=== PATIENT | female | born 1960 ===

== ENCOUNTER 2020-08-16 14:55 | Inpatient (IN) | payer BC ==
[~2020-08-16] VITALS: Ht 167.6 cm; Wt 75.7 kg
[2020-08-16 15:17] VITALS: BP 98/67
[2020-08-16] MEDS ORDERED: Z GUARD REMEDY PASTE 57 GM TUBE TOP PRN ×2 (15:45)
[2020-08-16] MEDS ORDERED: ACETAMINOPHEN 325 MG TABLET PO PRN (15:45)
[2020-08-16] MEDS ORDERED: HYDROCODONE/APAP 5-325MG TABLET PO PRN (15:45)
[2020-08-16] MEDS ORDERED: ONDANSETRON 4 MG/2 ML VIAL IV PRN (15:45)
[2020-08-16] MEDS ORDERED: ZOLPIDEM 5 MG TABLET PO PRN (15:45)
[2020-08-16] MEDS ORDERED: MAGNESIUM HYDROXIDE 30 ML LIQUID UDC PO PRN (15:45)
[2020-08-16] MEDS ORDERED: LISI10TA29 PO (16:46)
[2020-08-16] MEDS ORDERED: CLOP75TA33 PO (16:46)
[2020-08-16] MEDS ORDERED: ACET-2154 PO (16:46)
[2020-08-16] MEDS ORDERED: ATOR80TA PO (16:46)
[2020-08-16] MEDS ORDERED: ASPI-869 PO (16:46)
[2020-08-16] MEDS ORDERED: ZINC1CAP2 PO (16:46)
--- NOTE | 2020-08-16 18:00 | NUR ---
Admitted this 59 y/o female from [facility] [place] with diagnosis of Acute CVA. Patient is alert, oriented x 4, not in any form of distress, on room air. She denies any pain or discomfort. Oriented patient to room, staff and use of devises. Assisted with her needs promptly. Admission photos taken. Call light and frequently used items placed within patient's reach. Informed Dr. Chung regarding admission and MD saw patient. Dr. Aparicio made aware of admission and need to reconcile medications and MD said she will do. Will endorse accordingly.
[2020-08-16 20:12] VITALS: BP 103/73
[2020-08-16] MEDS ORDERED: DOCUSATE SODIUM 100 MG CAPSULE PO SCH (21:00)
--- NOTE | 2020-08-16 21:52 | NUR ---
Received report from outgoing nurse, DELMI Richardson.
[2020-08-17] MEDS: ACETAMINOPHEN 325 MG TABLET PO SCH ×5 (01:31→23:15)
[2020-08-17 04:18] VITALS: BP 107/71
--- NOTE | 2020-08-17 06:14 | NUR ---
Shift End Report: Vs stable. Slept well. All needs attended and met. No significant event reported all night. Continue current rehab plan of care.
[2020-08-17] MEDS ORDERED: PANTOPRAZOLE SODIUM 40 MG TABLET.DR PO SCH (07:00)
[2020-08-17] MEDS: CLOPIDOGREL 75 MG TABLET PO SCH (08:39)
[2020-08-17] MEDS: ZINC SULFATE 220 MG CAPSULE PO SCH (08:39)
[2020-08-17] MEDS: ASPIRIN EC 325 MG TABLET.DR PO SCH (08:50)
[2020-08-17 08:51] VITALS: BP 115/65
[2020-08-17] MEDS: LISINOPRIL 10 MG TABLET PO SCH (08:51)
--- NOTE | 2020-08-17 14:20 | NUR ---
Stroke Screening (PHQ-9): wafer polishing worker conducting post stroke depression screening. Patient scored 2 (0-4:None-Minimal). Patient does not require a psychiatry consult.
--- NOTE | 2020-08-17 14:22 | NUR ---
Social Work Stroke Resources: Meatman met with patient informed about the importance of stroke. make ready worker provided stroke referrals such as: Stroke Family Warmline at (0-306-3-STROKE) and Caring for a stroke survivor ( ). make ready worker also educated patient on the signs of Stroke and to immediately call 911. Meatman provided patient with a stroke educational packet with information such as; Dietary food, what stroke is, risks, emotional support, finding support, medical management, and effects of stroke.
[2020-08-17 16:00] VITALS: BP 116/77
--- NOTE | 2020-08-17 17:57 | NUR ---
no changes noted during shift, patient sitting in chair, alert, oriented x4, able to tolerate the meals and medications, no acute distress noted
[2020-08-17 20:22] VITALS: BP 113/72
[2020-08-17] MEDS: ATORVASTATIN 40 MG TABLET PO SCH (20:41)
--- NOTE | 2020-08-18 03:45 | NUR ---
AAOx4 no acute distress noted. ambulates to the BR with cane. Voiding well. Denies any pain nor any discomfort. Attended to needs. Will monitor patient. Kept comfortable. VSS.
[2020-08-18 04:46] VITALS: BP 106/55
[2020-08-18] MEDS: ACETAMINOPHEN 325 MG TABLET PO SCH ×4 (06:11→23:05)
[2020-08-18] MEDS: ASPIRIN EC 325 MG TABLET.DR PO SCH (08:17)
[2020-08-18] MEDS: ZINC SULFATE 220 MG CAPSULE PO SCH (08:17)
[2020-08-18] MEDS: CLOPIDOGREL 75 MG TABLET PO SCH (08:17)
[2020-08-18] MEDS: LISINOPRIL 10 MG TABLET PO SCH (08:18)
[2020-08-18 08:41] VITALS: BP 100/68
[2020-08-18 15:15] VITALS: BP 108/69
[2020-08-18] MEDS: ATORVASTATIN 40 MG TABLET PO SCH (20:28)
--- NOTE | 2020-08-18 22:30 | NUR ---
received pt lying in bed watching TV. No acute distress noted, No SOB noted, on room air. VSS. AAOx4. Denies any pain or discomfort at the moment. All due medication administered, tolerated well. Offered snacks. Attended to needs. Safety measures maintained. Bilateral lower heels offloaded with pillow. Kept comfortable. Call light and all personal items with reach. Will continue to monitor through the night.
[2020-08-19] MEDS: ACETAMINOPHEN 325 MG TABLET PO SCH ×3 (05:17→17:11)
[2020-08-19 08:00] VITALS: BP 115/73
[2020-08-19] MEDS: CLOPIDOGREL 75 MG TABLET PO SCH (08:10)
[2020-08-19] MEDS: ZINC SULFATE 220 MG CAPSULE PO SCH (08:10)
[2020-08-19] MEDS: ASPIRIN EC 325 MG TABLET.DR PO SCH (08:10)
[2020-08-19] MEDS: LISINOPRIL 10 MG TABLET PO SCH (08:10)
[2020-08-19 15:37] VITALS: BP 124/59
[2020-08-19] MEDS: ATORVASTATIN 40 MG TABLET PO SCH (20:25)
[2020-08-19 20:38] VITALS: BP 108/81
[2020-08-20 04:51] VITALS: BP 103/69
[2020-08-20] MEDS: PANTOPRAZOLE SODIUM 40 MG TABLET.DR PO SCH (05:49)
--- NOTE | 2020-08-20 06:48 | NUR ---
no changes noted during shift, patient BRP, skin intact. All due medications administered, tolerated well. NO acute distress, no SOB noted. Needs attended too promptly. Snacks proved. Safety measures maintained. Will continue plan of care.
[2020-08-20 06:59] LABS: EOSINOPHILS # (AUTO) 0.2 K/uL (0.0-0.7); HEMATOCRIT 37.2 % (31.2-41.9); HEMOGLOBIN 12.4 g/dL (10.9-14.3); LYMPHOCYTES # (AUTO) 2.4 K/uL (20.0-40.0); LYMPHOCYTES % (AUTO) 51.1 % (20.5-51.5); MEAN CORPUSCULAR HEMOGLOBIN 29.2 uug (24.7-32.8); MEAN CORPUSCULAR HGB CONC 33 g/dL (32.3-35.6); MEAN CORPUSCULAR VOLUME 87.3 fL (75.5-95.3); MONOCYTES # (AUTO) 0.5 K/uL (2.0-10.0); MONOCYTES % (AUTO) 9.8 % (0.0-11.0); NEUTROPHILS # (AUTO) 1.6 K/uL (1.8-8.9); NEUTROPHILS % (AUTO) 34.1 % (38.5-71.5); PLATELET COUNT (AUTO) 274 K/uL (179-408); RED BLOOD CELL COUNT(AUTO) 4.26 MIL/uL (3.63-4.92); WHITE BLOOD COUNT (AUTO) 4.7 K/uL (3.8-11.8)
[2020-08-20 07:26] LABS: THYROID STIMULATING HORMONE 1.068 mIU/mL (0.358-3.740)
[2020-08-20 07:36] LABS: BILIRUBIN,TOTAL 0.6 mg/dL (0.2-1.0); CREATININE 0.9 mg/dL (0.6-1.3); PHOSPHOROUS 3.9 mg/dL (2.5-4.9); POTASSIUM 3.9 mmol/L (3.5-5.1); TOTAL PROTEIN, SERUM 6.9 g/dL (6.4-8.2)
[2020-08-20] MEDS: CLOPIDOGREL 75 MG TABLET PO SCH (08:08)
[2020-08-20] MEDS: ACETAMINOPHEN 325 MG TABLET PO PRN ×2 (08:08→20:57)
[2020-08-20] MEDS: LISINOPRIL 10 MG TABLET PO SCH (08:08)
[2020-08-20] MEDS: ZINC SULFATE 220 MG CAPSULE PO SCH (08:08)
[2020-08-20] MEDS: ASPIRIN EC 325 MG TABLET.DR PO SCH (08:08)
[2020-08-20 08:20] VITALS: BP 118/78
[2020-08-20 17:03] VITALS: BP 104/70
[2020-08-20 20:00] VITALS: BP 111/84
--- NOTE | 2020-08-20 20:00 | NUR ---
RECEIVED PATIENT AWAKE SITTING IN W/C AT BEDSIDE. A/OX4. VERY PLEASANT WHEN APPROACHED. DENIES PAIN OR DISCOMFORT AT THIS TIME. NO RESP.DISTRESS NOTED. VS WNL. CALL LIGHT IN REACH. ALL NEEDS ATTENDED. WILL CONTINUE TO MONITOR AND ASSESS.
[2020-08-20] MEDS: ATORVASTATIN 40 MG TABLET PO SCH (20:25)
[2020-08-21 04:00] VITALS: BP 129/82
[2020-08-21] MEDS: PANTOPRAZOLE SODIUM 40 MG TABLET.DR PO SCH (06:06)
[2020-08-21] MEDS: ASPIRIN EC 325 MG TABLET.DR PO SCH (08:00)
[2020-08-21] MEDS: LISINOPRIL 10 MG TABLET PO SCH (08:00)
[2020-08-21] MEDS: ZINC SULFATE 220 MG CAPSULE PO SCH (08:00)
[2020-08-21] MEDS: CLOPIDOGREL 75 MG TABLET PO SCH (08:00)
[2020-08-21 08:14] VITALS: BP 118/70
[2020-08-21 15:14] VITALS: BP 106/58
[2020-08-21 20:19] VITALS: BP 131/86
[2020-08-21] MEDS: ATORVASTATIN 40 MG TABLET PO SCH (20:51)
[2020-08-21] MEDS: ACETAMINOPHEN 325 MG TABLET PO PRN (21:21)
[2020-08-21] MEDS: MAGNESIUM HYDROXIDE 30 ML LIQUID UDC PO PRN (21:21)
[2020-08-22 04:00] VITALS: BP 110/76
[2020-08-22] MEDS: PANTOPRAZOLE SODIUM 40 MG TABLET.DR PO SCH (06:10)
--- NOTE | 2020-08-22 07:30 | NUR ---
Received pt in bed, awake. A&Ox4, able to verbalized needs. No s/s of acute distress, no SOB. Pt denies pain/discomfort at this time. Belongings and call light within reach, reinforced usage, pt verbalized understanding. Bed low and in locked position, safety measures, aspiration precautions, fall precautions in place. Will continue to monitor.
[2020-08-22 08:00] VITALS: BP 126/86
--- NOTE | 2020-08-22 09:30 | NUR ---
Pt off unit with PT, 0900 medications delayed. Will administer per order upon pt return.
[2020-08-22] MEDS: ASPIRIN EC 81 MG TABLET.DR PO SCH (11:10)
[2020-08-22] MEDS: ZINC SULFATE 220 MG CAPSULE PO SCH (11:10)
[2020-08-22] MEDS: CLOPIDOGREL 75 MG TABLET PO SCH (11:10)
[2020-08-22] MEDS: LISINOPRIL 10 MG TABLET PO SCH (11:11)
[2020-08-22 16:00] VITALS: BP 104/71
--- NOTE | 2020-08-22 19:02 | NUR ---
EOSS: Pt in chair on computer, alert and awake. No s/s of acute distress. No acute changes during shift. Able to make needs known during shift, all needs attended to promptly. Pt ambulated with FWW with PT, tolerated well. All due medications and care given per order. No a/r noted. Belongings and call light within reach. Will endorse care to caustic cresylate shift superintendent.
[2020-08-22 20:00] VITALS: BP 131/75
[2020-08-22] MEDS: ATORVASTATIN 40 MG TABLET PO SCH (20:26)
[2020-08-23 04:00] VITALS: BP 129/85
--- NOTE | 2020-08-23 04:20 | NUR ---
Received pt at the beginning of shift sitting in wheelchair and eating. AAO x4. No acute distress noted. Pt slept mostly throughout the shift. Denies pain/ discomfort. Due med given as ordered. All needs attended to promptly. Safety measures maintained. Call light and personal items within reach. Will continue to monitor.
[2020-08-23] MEDS: PANTOPRAZOLE SODIUM 40 MG TABLET.DR PO SCH (06:21)
--- NOTE | 2020-08-23 07:55 | NUR ---
Received PT in bed, awake AO X 4. Patient is cooperative and pleasant. Makes needs known to staff. PT stated they had a good night sleep. No acute distress or SOB noted. All pertinent information given during report. No complain noted at this time. Safety measures provided, call light within reach, bed low and lock. Will continue to monitor.
[2020-08-23 08:00] VITALS: BP 118/80
[2020-08-23] MEDS: CLOPIDOGREL 75 MG TABLET PO SCH (08:40)
[2020-08-23] MEDS: ASPIRIN EC 81 MG TABLET.DR PO SCH (08:41)
[2020-08-23] MEDS: ZINC SULFATE 220 MG CAPSULE PO SCH (08:41)
[2020-08-23] MEDS: LISINOPRIL 10 MG TABLET PO SCH (08:41)
[2020-08-23 16:00] VITALS: BP 140/84
[2020-08-23] MEDS: DOCUSATE SODIUM 100 MG CAPSULE PO SCH ×2 (16:42→19:54)
--- NOTE | 2020-08-23 18:45 | NUR ---
Received PT in bed, awake AO X 4. Patient is cooperative and pleasant. Makes needs known to staff. PT attended physical therapy. Tolerated activities well. No acute distress or SOB noted. All pertinent information given during report. No complain noted at this time. Safety measures provided, call light within reach, bed low and lock. Will endorse to power and recovery shift engineer nurse.
[2020-08-23] MEDS: ATORVASTATIN 40 MG TABLET PO SCH (19:54)
--- NOTE | 2020-08-23 20:24 | NUR ---
pt eating dinner at bedside. No acute distress noted. A&Ox4, makes needs known. No s/s SOB, noted, denies pain/discomfort at this time. All due medication administered. Safety measures in place. Call light and personal belongings within reach. Will continue to monitor.
[2020-08-23 20:25] VITALS: BP 126/78
[2020-08-24 04:55] VITALS: BP 126/65
[2020-08-24] MEDS: PANTOPRAZOLE SODIUM 40 MG TABLET.DR PO SCH (06:08)
[2020-08-24 07:30] VITALS: BP 147/91
[2020-08-24] MEDS: LISINOPRIL 10 MG TABLET PO SCH (08:13)
[2020-08-24] MEDS: CLOPIDOGREL 75 MG TABLET PO SCH (08:13)
[2020-08-24] MEDS: ASPIRIN EC 81 MG TABLET.DR PO SCH (08:13)
[2020-08-24] MEDS: ZINC SULFATE 220 MG CAPSULE PO SCH (08:13)
[2020-08-24] MEDS: DOCUSATE SODIUM 100 MG CAPSULE PO SCH ×2 (08:13→20:33)
[2020-08-24] MEDS: ACETAMINOPHEN 325 MG TABLET PO PRN (08:16)
[2020-08-24 15:10] VITALS: BP 102/59
--- NOTE | 2020-08-24 19:30 | NUR ---
Pt received sitting in chair at bedside. Denies pain or SOB. No distress noted. Equal strength on bilateral arms and legs, only minor facial weakness noted. Pt is AOx4. Denies any numbness or weakness in extremities. On RA sating at 100%. Call light is within reach. No other issues or concerns at this time.
[2020-08-24 20:06] VITALS: BP 136/84
[2020-08-24] MEDS: ATORVASTATIN 40 MG TABLET PO SCH (20:33)
[2020-08-25 04:55] VITALS: BP 135/69
[2020-08-25] MEDS: PANTOPRAZOLE SODIUM 40 MG TABLET.DR PO SCH (06:46)
[2020-08-25 08:00] VITALS: BP 127/88
[2020-08-25] MEDS: LISINOPRIL 10 MG TABLET PO SCH (08:32)
[2020-08-25] MEDS: ZINC SULFATE 220 MG CAPSULE PO SCH (08:32)
[2020-08-25] MEDS: DOCUSATE SODIUM 100 MG CAPSULE PO SCH ×2 (08:32→20:30)
[2020-08-25] MEDS: CLOPIDOGREL 75 MG TABLET PO SCH (08:32)
[2020-08-25] MEDS: ASPIRIN EC 81 MG TABLET.DR PO SCH (08:32)
[2020-08-25 16:00] VITALS: BP 135/89
[2020-08-25 20:00] VITALS: BP 144/82
[2020-08-25] MEDS: ACETAMINOPHEN 325 MG TABLET PO PRN (20:30)
[2020-08-25] MEDS: ATORVASTATIN 40 MG TABLET PO SCH (20:30)
--- NOTE | 2020-08-26 00:43 | NUR ---
AAOx4 OOB to the BR. Voiding well. Admitted for acute CVA. Left facial weakness noted/ slight facial droop noted. Needs attended. VSS. Compliant with meds. Tylenol 650 mg po given for headache. Voiding okay.
[2020-08-26 04:00] VITALS: BP 133/79
[2020-08-26] MEDS: PANTOPRAZOLE SODIUM 40 MG TABLET.DR PO SCH (06:31)
--- NOTE | 2020-08-26 06:53 | NUR ---
End of shift notes: Quiet night. No acute distress noted. VSS. Slept well most of the shift. Kept comfortable. No complaints presented during the shift.
--- NOTE | 2020-08-26 07:36 | NUR ---
Received PT in bed, awake AO X 4. Patient is cooperative and pleasant. Makes needs known to staff. PT stated they had a good night sleep. No acute distress or SOB noted. All pertinent information given during report. No complain noted at this time. Continue plan of care. Safety measures provided, call light within reach, bed low and lock. Will continue to monitor.
[2020-08-26] MEDS: ASPIRIN EC 81 MG TABLET.DR PO SCH (08:24)
[2020-08-26] MEDS: DOCUSATE SODIUM 100 MG CAPSULE PO SCH ×2 (08:24→20:51)
[2020-08-26] MEDS: ZINC SULFATE 220 MG CAPSULE PO SCH (08:24)
[2020-08-26] MEDS: CLOPIDOGREL 75 MG TABLET PO SCH (08:24)
[2020-08-26] MEDS: LISINOPRIL 10 MG TABLET PO SCH (08:30)
[2020-08-26] MEDS: ACETAMINOPHEN 325 MG TABLET PO PRN ×2 (08:30→20:50)
[2020-08-26 08:31] VITALS: BP 137/91
[2020-08-26 16:00] VITALS: BP 140/81
--- NOTE | 2020-08-26 18:17 | NUR ---
PT in bed, awake AO X 4. Patient is cooperative and pleasant. Makes needs known to staff. No acute distress or SOB noted. PT participated in all assigned therapy activities and tolerated it well. Administered pain medication prior to physical therapy. No further complain of pain noted at this time. Continue plan of care. Safety measures provided, call light within reach, bed low and lock. Will endorse to information specialist nurse
[2020-08-26 20:15] VITALS: BP 136/96
[2020-08-26] MEDS: ATORVASTATIN 40 MG TABLET PO SCH (20:51)
--- NOTE | 2020-08-26 22:05 | NUR ---
OOB in chair @ beginning of shift. AAOx4 Ambulates to the BR. Voiding well. complained of headache, Tylenol given. All due meds given. Will monitor patient. Needs attended. VSS.
[2020-08-27 04:15] VITALS: BP 127/73
[2020-08-27] MEDS: PANTOPRAZOLE SODIUM 40 MG TABLET.DR PO SCH (06:17)
--- NOTE | 2020-08-27 07:33 | NUR ---
Received PT in bed, awake AO X 4. Patient is cooperative and pleasant. Makes needs known to staff. PT wants to follow up with Covid vaccine with Administration. Nurse will follow up. No acute distress or SOB noted. All pertinent information given during report. No complain noted at this time. Continue plan of care. Safety measures provided, call light within reach, bed low and lock. Will continue to monitor.
[2020-08-27] MEDS: ZINC SULFATE 220 MG CAPSULE PO SCH (08:25)
[2020-08-27] MEDS: LISINOPRIL 10 MG TABLET PO SCH (08:26)
[2020-08-27] MEDS: DOCUSATE SODIUM 100 MG CAPSULE PO SCH ×2 (08:26→20:10)
[2020-08-27] MEDS: ASPIRIN EC 81 MG TABLET.DR PO SCH (08:26)
[2020-08-27] MEDS: CLOPIDOGREL 75 MG TABLET PO SCH (08:26)
[2020-08-27] MEDS: ACETAMINOPHEN 325 MG TABLET PO PRN ×2 (12:11→20:10)
[2020-08-27 12:52] VITALS: BP 134/82
--- NOTE | 2020-08-27 16:00 | NUR ---
PT requested to independently bathe in shower room. PT has steady gait, but nurse near by for assistance if needed. PT able to bathe alone. No acute distress or SOB. Will endorse to occupational therapy.
[2020-08-27 16:11] VITALS: BP 157/99
--- NOTE | 2020-08-27 18:18 | NUR ---
PT in bed, awake AO X 4. Patient is cooperative and pleasant. Makes needs known to staff. PT received COVID vaccine #2 through [employer]. Provided vaccination card for personal file. No acute distress or SOB noted. No complain noted at this time. Continue plan of care. Safety measures provided, call light within reach, bed low and lock. Will endorse to slot shift supervisor nurse
[2020-08-27] MEDS: ATORVASTATIN 40 MG TABLET PO SCH (20:10)
[2020-08-27] MEDS: MAGNESIUM HYDROXIDE 30 ML LIQUID UDC PO PRN (20:11)
[2020-08-27 20:33] VITALS: BP 153/81
[2020-08-28 05:42] VITALS: BP 143/67
[2020-08-28] MEDS: PANTOPRAZOLE SODIUM 40 MG TABLET.DR PO SCH (06:38)
[2020-08-28 07:59] VITALS: BP 138/79
[2020-08-28] MEDS: ZINC SULFATE 220 MG CAPSULE PO SCH (08:36)
[2020-08-28] MEDS: DOCUSATE SODIUM 100 MG CAPSULE PO SCH ×2 (08:36→20:27)
[2020-08-28] MEDS: CLOPIDOGREL 75 MG TABLET PO SCH (08:37)
[2020-08-28] MEDS: ASPIRIN EC 81 MG TABLET.DR PO SCH (08:44)
[2020-08-28] MEDS: LISINOPRIL 10 MG TABLET PO SCH (08:47)
[2020-08-28] MEDS: ACETAMINOPHEN 325 MG TABLET PO PRN ×2 (08:56→20:27)
[2020-08-28 16:56] VITALS: BP 142/94
--- NOTE | 2020-08-28 18:24 | NUR ---
patient AOx4 able to make needs known. Patient is cooperative and pleasant, received PT, no SOB or distress noted. No complain noted at this time. Continue plan of care. Safety measures provided, call light within reach, bed low and lock. Will continue to monitor.
[2020-08-28] MEDS: ATORVASTATIN 40 MG TABLET PO SCH (20:27)
[2020-08-28 21:24] VITALS: BP 144/95
[2020-08-28] MEDS ORDERED: HYDROCORTISONE 0.5% CREAM 28.35 GM TUBE TOP PRN (21:45)
[2020-08-28] MEDS: diphenhydrAMINE 25 MG CAP PO PRN (22:26)
--- NOTE | 2020-08-28 22:28 | NUR ---
No acute distress noted. A&Ox4, makes needs known. No s/s SOB, noted, denies pain/discomfort at this time. All due medication administered. per pt request Administered Tylenol PRN. pt c/o itching and redness @injection site of her COVID19 vaccination, notified and got new order for Benadryl and hydrocortisone cream PRN. Safety measures in place. Call light and personal belongings within reach. Will continue to monitor.
[2020-08-29 05:29] VITALS: BP 139/80
[2020-08-29] MEDS: PANTOPRAZOLE SODIUM 40 MG TABLET.DR PO SCH (05:58)
[2020-08-29] MEDS ORDERED: HYDROCORTISONE 0.5% CREAM 28.35 GM TUBE TOP PRN (06:15)
--- NOTE | 2020-08-29 07:30 | NUR ---
Patient received sitting on the side of the bed. Awake, alert and oriented times 4.. Patient has slight droop on the right side of the face. Patient is on room air. No sign of distress noted. Patient complain of pain, requesting Tylenol. Safety precautions are in place. will continue to monitor.
[2020-08-29 08:00] VITALS: BP 145/92
[2020-08-29] MEDS: ZINC SULFATE 220 MG CAPSULE PO SCH (08:52)
[2020-08-29] MEDS: DOCUSATE SODIUM 100 MG CAPSULE PO SCH ×2 (08:52→21:38)
[2020-08-29] MEDS: ASPIRIN EC 81 MG TABLET.DR PO SCH (08:52)
[2020-08-29] MEDS: CLOPIDOGREL 75 MG TABLET PO SCH (08:52)
[2020-08-29] MEDS: LISINOPRIL 10 MG TABLET PO SCH (08:55)
[2020-08-29] MEDS: ACETAMINOPHEN 325 MG TABLET PO PRN ×2 (09:05→21:45)
[2020-08-29 15:54] VITALS: BP 128/76
--- NOTE | 2020-08-29 19:11 | NUR ---
Patient is resting comfortably in bed now. Patient is on room air. No sign of distress noted. All medications given as ordered. Will endorse to the oncoming nurse.
[2020-08-29 20:09] VITALS: BP 128/71
[2020-08-29] MEDS: ATORVASTATIN 40 MG TABLET PO SCH (21:39)
[2020-08-29] MEDS: diphenhydrAMINE 25 MG CAP PO PRN (21:45)
[2020-08-30 04:36] VITALS: BP 134/83
[2020-08-30] MEDS: PANTOPRAZOLE SODIUM 40 MG TABLET.DR PO SCH (06:12)
--- NOTE | 2020-08-30 06:49 | NUR ---
End of Shift: Patient is AOx4, no acute distress noted, VS WNL. Admin medications as ordered. Patient slept through the night. Aspiration and fall precautions in place, bed is low & locked, side rails are up x2, call light within reach. Will endorse to the AM shift nurse.
--- NOTE | 2020-08-30 07:30 | NUR ---
Received pt in chair, awake. A&Ox4, able to verbalize needs. No s/s of acute distress, no SOB. Pt denies pain/discomfort at this time. Belongings and call light within reach. Safety measures, aspiration precautions, fall precautions in place. Will continue to monitor.
[2020-08-30 08:07] VITALS: BP 137/89
[2020-08-30] MEDS: ZINC SULFATE 220 MG CAPSULE PO SCH (09:21)
[2020-08-30] MEDS: DOCUSATE SODIUM 100 MG CAPSULE PO SCH ×2 (09:21→20:39)
[2020-08-30] MEDS: ASPIRIN EC 81 MG TABLET.DR PO SCH (09:21)
[2020-08-30] MEDS: CLOPIDOGREL 75 MG TABLET PO SCH (09:21)
[2020-08-30] MEDS: LISINOPRIL 10 MG TABLET PO SCH (09:22)
[2020-08-30] MEDS: ACETAMINOPHEN 325 MG TABLET PO PRN ×2 (09:41→20:41)
[2020-08-30 15:12] VITALS: BP 136/89
--- NOTE | 2020-08-30 19:06 | NUR ---
EOSS: Pt in bed, awake, no s/s of acute distress. Able to make needs known during shift, all needs attended to promptly. Pt ambulated with PT, tolerated well. All due medications and care given per order. Safety measures maintained. Belongings and call light within reach. Will endorse care to plant operator/shift supervisor.
--- NOTE | 2020-08-30 20:00 | NUR ---
Received pt in bed, awake, A&Ox4, able to make needs known. No s/s of respiratory distress, no pain or discomfort reported. Safety measures initiated, will continue to monitor.
[2020-08-30 20:36] VITALS: BP 136/87
[2020-08-30] MEDS: ATORVASTATIN 40 MG TABLET PO SCH (20:39)
[2020-08-30] MEDS: diphenhydrAMINE 25 MG CAP PO PRN (22:10)
[2020-08-31] MEDS: PANTOPRAZOLE SODIUM 40 MG TABLET.DR PO SCH (06:09)
--- NOTE | 2020-08-31 06:25 | NUR ---
Pt slept through the night, no s/s of acute distress, no pain or discomfort reported, due medications given and tolerated well, safety and comfort provided. all needs attended.
--- NOTE | 2020-08-31 07:30 | NUR ---
Received pt awake, alert, able to verbalize needs. No s/s of acute distress, no complaints at this time. Belongings and call light within reach. Safety measures, aspiration precautions, fall precautions in place. Will continue to monitor.
[2020-08-31 08:03] VITALS: BP 145/93
[2020-08-31] MEDS: ZINC SULFATE 220 MG CAPSULE PO SCH (09:47)
[2020-08-31] MEDS: ASPIRIN EC 81 MG TABLET.DR PO SCH (09:47)
[2020-08-31] MEDS: CLOPIDOGREL 75 MG TABLET PO SCH (09:47)
[2020-08-31] MEDS: DOCUSATE SODIUM 100 MG CAPSULE PO SCH ×2 (09:47→21:18)
[2020-08-31] MEDS: LISINOPRIL 10 MG TABLET PO SCH (09:48)
[2020-08-31] MEDS: ACETAMINOPHEN 325 MG TABLET PO PRN ×2 (09:48→21:18)
[2020-08-31 14:34] VITALS: BP 127/65
--- NOTE | 2020-08-31 19:31 | NUR ---
EOSS: Pt awake, alert, no acute distress, no complaints. All due medications given per order. Safety measures and aspiration precautions maintained. Belongings and call light within reach. Will endorse care to night patrol inspector.
[2020-08-31 20:00] VITALS: BP 130/78
[2020-08-31] MEDS: ATORVASTATIN 40 MG TABLET PO SCH (21:18)
--- NOTE | 2020-08-31 22:00 | NUR ---
Received pt awake, alert, able to verbalize needs. No s/s of acute distress, no complaints at this time. All due mediations administered. Administered Tylenol PRN, per pt request. TRANSFER ENGINEER assisted with bedtime shower. All needs attended too. Belongings and call light within reach. Safety measures, aspiration precautions, fall precautions in place. Will continue to monitor.
[2020-09-01 04:00] VITALS: BP 120/70
[2020-09-01] MEDS: PANTOPRAZOLE SODIUM 40 MG TABLET.DR PO SCH (06:11)
--- NOTE | 2020-09-01 07:45 | NUR ---
Pt recieved in bed, no acute distress. No complaints able to make needs known. AOx4 on room air, saftey measures in place. call light in reach. Will continue to monitor.
[2020-09-01 08:00] VITALS: BP 133/87
[2020-09-01] MEDS: ASPIRIN EC 81 MG TABLET.DR PO SCH (09:14)
[2020-09-01] MEDS: DOCUSATE SODIUM 100 MG CAPSULE PO SCH ×2 (09:14→20:45)
[2020-09-01] MEDS: ZINC SULFATE 220 MG CAPSULE PO SCH (09:15)
[2020-09-01] MEDS: CLOPIDOGREL 75 MG TABLET PO SCH (09:15)
[2020-09-01] MEDS: LISINOPRIL 10 MG TABLET PO SCH (09:15)
[2020-09-01] MEDS: ACETAMINOPHEN 325 MG TABLET PO PRN ×3 (09:15→21:48)
[2020-09-01 16:28] VITALS: BP 117/84
--- NOTE | 2020-09-01 18:37 | NUR ---
EOSR Pt is left in bed comfortable. Routine meds and prn meds given. Pts needs were met. On room air, saftey meaasures in place. call light in reach, will Endorse to oncoming nurse
--- NOTE | 2020-09-01 19:30 | NUR ---
Received pt in bed. Alert and oriented x4. On room air. No acute distress noted. Safety and comfort provided. Call light within reach. Will continue to monitor.
[2020-09-01 20:00] VITALS: BP 115/68
[2020-09-01] MEDS: ATORVASTATIN 40 MG TABLET PO SCH (20:45)
[2020-09-02 04:00] VITALS: BP 124/72
[2020-09-02] MEDS: PANTOPRAZOLE SODIUM 40 MG TABLET.DR PO SCH (06:38)
[2020-09-02] MEDS: ACETAMINOPHEN 325 MG TABLET PO PRN (06:40)
--- NOTE | 2020-09-02 06:45 | NUR ---
VSS. Due medication given. No acute distress noted. Safety and comfort provided. Call light within reach.
[2020-09-02] MEDS: CLOPIDOGREL 75 MG TABLET PO SCH (08:31)
[2020-09-02] MEDS: ZINC SULFATE 220 MG CAPSULE PO SCH (08:31)
[2020-09-02] MEDS: ASPIRIN EC 81 MG TABLET.DR PO SCH (08:31)
[2020-09-02] MEDS: DOCUSATE SODIUM 100 MG CAPSULE PO SCH (08:31)
[2020-09-02] MEDS: LISINOPRIL 10 MG TABLET PO SCH (08:36)
[2020-09-02 08:52] VITALS: BP 140/92
--- NOTE | 2020-09-02 10:50 | NUR ---
Received an order from Dr. Chung for discharge to home.
--- NOTE | 2020-09-02 12:30 | NUR ---
Discharge instructions provided to the patient with verbalized understanding. Discharge papers signed by and given to the patient. Prescription provided to the patient. Medication list/prescription faxed to preferred pharmacy. All belongings well accounted for and brought with the patient. Discharge photos taken. Patient remains alert, oriented x 4, not in any form of distress, ambulatory. Vital signs stable. She denies any pain or discomfort. Assisted with her needs promptly. Assisted patient safely to the parking lot via wheelchair. Patient picked up by Yakov Garcia (spouse) via private car.
== END 2020-09-02 12:30 | disposition home or self-care (01) | DRG 57 ==
PROVIDERS: ADMIT Physical Medicine & Rehabilitation Pain Medicine; ATTEND Physical Medicine & Rehabilitation Pain Medicine
DX: I69.351 Hemiplegia and hemiparesis following cerebral infarction affecting right dominant side (principal); D68.59 Other primary thrombophilia; I69.322 Dysarthria following cerebral infarction; I69.398 Other sequelae of cerebral infarction; J45.909 Unspecified asthma, uncomplicated; R53.1 Weakness; R26.9 Unspecified abnormalities of gait and mobility; E78.5 Hyperlipidemia, unspecified; I10 Essential (primary) hypertension; K59.00 Constipation, unspecified; Z82.3 Family history of stroke; Z96.641 Presence of right artificial hip joint; E66.3 Overweight; Z68.27 Body mass index [BMI] 27.0-27.9, adult; F17.200 Nicotine dependence, unspecified, uncomplicated; Z88.2 Allergy status to sulfonamides
CPT/HCPCS: 36415; 83735; 84100; 84443; 85025; Q0163